=== PATIENT | male | born 1980 | race Caucasian/White ===

== ENCOUNTER 2016-10-29 13:11 | Emergency (ER) | payer OTHER ==
[~2016-10-29] VITALS: Ht 188 cm; Wt 103.9 kg
[2016-10-29 13:27] VITALS: TEMP 36.9; Ht 188 cm; Wt 103.9 kg
[2016-10-29] MEDS ORDERED: OXYCODONE HCL IR 5 MG TAB (IMMEDIATE RELEASE) PO STA (14:56)
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
[2016-10-29 17:16] VITALS: BP 136/94; PULSE 74; O2SAT 96
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
== END 2016-10-29 17:17 | disposition home or self-care (01) ==
LOC: EDBD 13:11 → C.ED 13:13 → C.EDB 17:17
DX: S09.90XA Unspecified injury of head, initial encounter (principal); V89.2XXA Person injured in unspecified motor-vehicle accident, traffic, initial encounter; S49.91XA Unspecified injury of right shoulder and upper arm, initial encounter; F17.210 Nicotine dependence, cigarettes, uncomplicated